=== PATIENT | male | born 1960 | race Caucasian/White ===

== ENCOUNTER 2020-07-26 08:37 | Outpatient (REF) | payer BC, SELFPAY | END 2020-07-26 08:38 | disposition home or self-care (01) | LOC: HO.BBR 08:37 | PROVIDERS: Visit Provider Internal Medicine | DX: E83.110 Hereditary hemochromatosis (principal) | CPT/HCPCS: 99195 ==

== ENCOUNTER 2020-08-09 08:05 | Outpatient (REF) | payer BC, SELFPAY | END 2020-08-09 08:06 | disposition home or self-care (01) | LOC: HO.BBR 08:05 | PROVIDERS: PCP Internal Medicine; Visit Provider Internal Medicine | DX: Z13.89 Encounter for screening for other disorder (principal) ==